=== PATIENT | male | born 1985 | race Caucasian/White ===

== ENCOUNTER 2018-03-09 06:12 | Day surgery (SDC) | payer OTHER ==
--- NOTE | 2018-03-08 18:33 | Pre-Procedure Note/Attestation ---
Pre-Procedure Note/Attestation Complete Prior to Procedure Planned Procedure: not applicable Procedure Narrative: 1. Spetoplasty 2. Submucous resection right inferior turbinate 3. Submucous resection left inferior turbinate 4. Repair nasal deformity Indications for Procedure Pre-Operative Diagnosis: 1. Nasal septal deviation 2. Hypertrophied right inferior turbinate 3. Hypertrophied left inferior turbinate 4. Nasal deformity Attestation I attest that I discussed the nature of the procedure; its benefits; risks and complications; and alternatives (and the risks and benefits of such alternatives ), prior to the procedure, with the patient (or the patient's legal medical representative). I attest that, if there was a reasonable possibility of needing a blood transfusion, the patient (or the patient's legal medical representative) was given the [facility] standardized written summary, pursuant to the Phong Kailash Blood Safety Act ([place] Health and Safety Code # 1645, as amended). I attest that I re-evaluated the patient just prior to the surgery and that there has been no change in the patient's H&P, : YOHAN LASSITER March 08, 2018 18:33
--- NOTE | 2018-03-08 18:34 | Brief Operative Note ---
Immediate Post Operative Note Operative Note Chief Complaint: Nasal airway obsrtuction and nasal deformity Pre-op Diagnosis: 1. Nasal septal deviation 2. Hypertrophied right inferior turbinate 3. Hypertrophied left inferior turbinate 4. Nasal deformity Procedure: 1. Spetoplasty 2. Submucous resection right inferior turbinate 3. Submucous resection left inferior turbinate 4. Repair nasal deformity Post-op Diagnosis: same as pre-op Surgeon: Yohan Lassiter Liner Checker: none Additional Surgeons: none Anesthesiologist: Andrea Anesthesia: general Specimen: yes - Gross septum-I am told pt will not be charged Complications: none Condition: stable Fluids: D5LR Estimated Blood Loss: volume - 100cc Drains: none Packing: Stamberger nasal gel Implant(s) used?: No YOHAN LASSITER March 08, 2018 18:34
--- NOTE | 2018-03-08 18:39 | Discharge Instructions ---
Discharge Instructions Discharge Instructions Follow up with: 03/18/18 noon Diet: regular Resume Normal Activity?: No Activity: light activity Pneumonia Vaccine: pt refused vaccine Influenza Vaccine (Jul to Dec): pt refused vaccine Follow Up Orders Pt has printed instructions which were reviewed and given to him on 03/02/18 during his pre op visit along with Rx for [place] and Amoxicillin to use post op. Return to Work/School on: March 22, 2018 For Congestive Heart Failure Reminder Report to your physician any weight gain of 5 pounds or more in one week. YOHAN LASSITER March 08, 2018 18:39
--- NOTE | 2018-03-08 23:15 | Pre-op HX & Phy Repo 2 SIG ---
DATE OF ADMISSION: 03/09/2018 DATE OF SURGERY: 03/09/2018 SURGEON: Janusz Gayle M.D. HISTORY OF PRESENT ILLNESS: The patient is a 33-year-old male, who has a nasal airway obstruction secondary to septal deviation and hypertrophied right and left inferior turbinates and nasal deformity. He is scheduled for surgery tomorrow septoplasty, submucous resection of right and left inferior turbinates, and repair of nasal deformity. PAST SURGICAL HISTORY: Appendectomy, umbilical hernia, and oral surgery. ALLERGIES: Unremarkable for drug allergies. SOCIAL HISTORY: He has never been a smoker. He is single. No children. He denies alcohol and drugs. He is employed in retail. He does exercise and uses probiotics and eats all foods. FAMILY HISTORY: Cancer. PHYSICAL EXAMINATION: GENERAL: He is 70 inches, 160 pounds, and BMI 22.96. VITAL SIGNS: Blood pressure 120/80, temperature 98.6, pulse 73, and respiratory rate 14 as of 03/02/2018 when I last saw him. HEENT: Head is normocephalic. Eyes, PERRLA, EOMI. Lips, tongue, pharynx, and neck normal. Nose, hypertrophied right and left inferior turbinates. Septal deviation. Nasal deformity. HEART: Normal S1 and S2. No murmur, bruit, gallop, or rub. ABDOMEN: Soft and nontender. Normoactive bowel sounds. EXTREMITIES: Grossly normal . GENITOURINARY: Not done as it is not indicated for the surgery and is followed by his regular doctor. NEUROLOGIC: Cranial nerves II through XII grossly normal. ASSESSMENT: He is stable for surgery as described above. PLAN: He has been given postop medications, amoxicillin and Cameron as well as printed instructions on 03/02/2018 that were reviewed with me. We discussed preop and postop care and he is stable for surgery. Janusz Gayle M.D. DR: ALENA JOB#: [id number] CC:
[2018-03-09] VITALS (15 sets, daily range): BP systolic 122–143; BP diastolic 65–88
[~2018-03-09] VITALS: Ht 177.8 cm; Wt 72.6 kg
[~2018-03-09 06:12] MED LIST: NKM
[2018-03-09] MEDS ORDERED: Lidocaine 1% 10mg/ml/EPI 0.01mg/ml 50ml INJ ONE (07:05)
[2018-03-09] MEDS ORDERED: Cocaine HCl 4% 4ml vial TOPIC ONE (07:05)
[2018-03-09] MEDS ORDERED: Bupivacaine 0.5% Inj 30 ml vial INJ ONE (07:06)
[2018-03-09] MEDS ORDERED: ceFAZolin sod 1 GM in D5W 55 ML IV SCH (07:15)
[2018-03-09] MEDS ORDERED: Sterile Water Irrig 1000ml IRRIG ONE (07:30)
[2018-03-09] MEDS ORDERED: Dexamethasone 4mg/ml vial IVP SCH (07:30)
[2018-03-09] MEDS ORDERED: LR 1000ml ONE (07:30)
[2018-03-09] MEDS ORDERED: NS Irrig 1000ml ONE (07:30)
[2018-03-09] MEDS ORDERED: Midazolam 2mg/2ml Inj ONE (07:34)
[2018-03-09] MEDS ORDERED: fentaNYL 100 mcg/2 mL IV ONE (07:34)
[2018-03-09] MEDS ORDERED: Propofol 200mg/20ml IV ONE (07:36)
[2018-03-09] MEDS ORDERED: Lidocaine 1% Plain 30 ml INJ ONE (07:36)
[2018-03-09] MEDS ORDERED: LR 1000ml 1,000 ML IVLG SCH (07:58)
[2018-03-09] MEDS ORDERED: Meperidine 50mg/ml Inj(FOR RIGORS ONLY) IVP PRN (08:00)
[2018-03-09] MEDS ORDERED: DiphenhydrAMINE 50mg/ml Inj IVP PRN (08:00)
[2018-03-09] MEDS ORDERED: Midazolam 2mg/2ml Inj IVP PRN (08:00)
--- NOTE | 2018-03-09 08:05 | Anethesia Preoperative Eval ---
Anesthesia Pre-op PMH/ROS General Date of Evaluation: March 09, 2018 Time of Evaluation: 07:20 Anesthesiologist: Andrea ASA Score: ASA 1 Mallampati Score Class I : Soft palate, uvula, fauces, pillars visible Class II: Soft palate, uvula, fauces visible Class III: Soft palate, base of uvula visible Class IV: Only hard plate visible Mallampati Classification: Class II Surgeon: Nalini Diagnosis: Nasal fracture, hypertrophic turbinates, septal deviation Surgical Procedure: ORIF nasal fracture, turbinectomies, septoplasty, SMR Family History: no anesthesia problems Allergies: Coded Allergies: Dairy (Verified Allergy, Intermediate, 03/09/18) lactoce intolerance, bloating Past Medical History Cardiovascular: Denies: HTN, CAD, HI, valve dz, arrhythmia, other Pulmonary: Denies: asthma, COPD, DANNY, other Gastrointestinal/Genitourinary: Denies: GERD, CRI, ESRD, other Neurologic/Psychiatric: Denies: dementia, CVA, depression/anxiety, TIA, other Endocrine: Denies: DM, hypothyroidism, steroids, other HEENT: Denies: cataract (L), cataract (R), glaucoma, GAMBELL (L), GAMBELL (R), other Hematology/Immune: Denies: anemia, DVT, bleeding disorder, other Musculoskeletal/Integumentary: Denies: OA, RA, DJD, DDD, edema, other PMH Narrative: Denies significant PMH PSxH Narrative: AP, IH Anesthesia Pre-op Phys. Exam Physician Exam Last Vital Signs Date Time Temp Pulse Resp B/P (MAP) Pulse Ox O2 Delivery O2 Flow Rate FiO2 03/09/18 06:53 97.9 90 20 127/69 99 Room Air 97.9 Constitutional: NAD Neurologic: CN 2-12 intact Cardiovascular: RRR, no M/R/G Respiratory: CTA Gastrointestinal: S/NT/ND Airway Exam Mallampati Score: Class II MO: full ROM: full Teeth: intact, other - S/p buccal fat removal yesterday. Bilateral swellilng present...cauterized hemostasis...no sutures. Anesthesia Pre-op A/P Labs WNL Risk Assessment & Plan Assessment: Healthy male for nasal surgery Plan: GA, LMA Status Change Before Surgery: No Pre-Antibiotics Drug: Ancef Given Within 1 Hr of Incision: Yes Time Given: :35 Phong Mendez MD March 09, 2018 08:05
--- NOTE | 2018-03-09 08:06 | Immediate Post-Op Evaluation ---
Immediate Post-Op Evalulation Immediate Post-Op Evalulation Procedure: ORIF nasal fracture, SMR, turbinectomies, septoplasty Date of Evaluation: March 09, 2018 Time of Evaluation: 08:55 IV Fluids: 675 Estimated Blood Loss: 50 Blood Pressure Systolic: 131 Blood Pressure Diastolic: 78 Pulse Rate: 109 Respiratory Rate: 17 O2 Sat by Pulse Oximetry: 97 Temperature (Fahrenheit): 98.0 Pain Score (1-10): 0 Nausea: No Vomiting: No Complications No complication Patient Status: reacts, patent, none Hydration Status: adequate Drug: Ancef Given Within 1 Hr of Incision: Yes Time Given: 07:35 Phong Mendez MD March 09, 2018 08:06
--- NOTE | 2018-03-09 08:54 | 48 Hour Post Anesthesia Eval ---
Post Anesthesia Evaluation Procedure: ORIF nasal fracture, SMR, turbinectomies, septoplasty Date of Evaluation: March 09, 2018 Time of Evaluation: 09:30 Blood Pressure Systolic: 128 0: 70 Pulse Rate: 104 Respiratory Rate: 17 O2 Sat by Pulse Oximetry: 97 Airway: patent Nausea: No Vomiting: No Pain Intensity: 2 Hydration Status: adequate Cardiopulmonary Status: Stable Mental Status/LOC: patient returned to baseline Follow-up Care/Observations: As per surgery Post-Anesthesia Complications: No anesthetic complication. Patient had an episode of SVT (rate of 150) in PACU. Treated with Metoprolol. Now rate is 100. VSS. Follow-up care needed: N/A Phong Mendez MD March 09, 2018 08:54
[2018-03-09] MEDS ORDERED: Metoprolol 5mg/5ml Inj ONE (08:57)
[2018-03-09] MEDS ORDERED: Metoprolol 5mg/5ml Inj IVP STA (08:57)
[2018-03-09] MEDS ORDERED: Norco 5mg/325mg tab ORAL PRN (09:00)
[2018-03-09] MEDS ORDERED: Metoclopramide 10mg/2ml Inj IVP PRN (09:00)
[2018-03-09] MEDS ORDERED: Metoprolol 5mg/5ml Inj IVP PRN (11:00)
--- NOTE | 2018-03-09 16:00 | Operative Note - Dictated ---
DATE OF OPERATION: 03/09/2018 SURGEON: Janusz Gayle M.D. CARDIAC EXERCISE PHYSIOLOGIST: None. ANESTHESIOLOGIST: Phong Mendez M.D. ANESTHESIA: LMA general anesthesia as well as 13 mL 50:50 mixture 1% lidocaine with 1:100,000 epinephrine and Marcaine 0.5% without epinephrine. INDICATION FOR SURGERY: The patient with nasal airway obstruction secondary to septal deviation and hypertrophied right and left inferior turbinates and nasal deformity. POSTOPERATIVE DIAGNOSIS: The patient with nasal airway obstruction secondary to septal deviation and hypertrophied right and left inferior turbinates and nasal deformity. FINDINGS: The patient with nasal airway obstruction secondary to septal deviation and hypertrophied right and left inferior turbinates and nasal deformity. PROCEDURE: 1. Septoplasty. 2. Submucous resection of right inferior turbinate. 3. Submucous resection of left inferior turbinate. 4. Repair of nasal deformity. TECHNIQUE: The patient was prepped and draped in the usual manner via LMA general anesthesia. A time-out was performed and all concurred as to the procedure and equipment. I then injected 13 mL of the above mixture lidocaine, Marcaine, epinephrine. I also placed 4 nasal pledgets, which had a total of 4 mL of 4% cocaine, 2 in either nostril which were accounted for at the end of the case. Initially incision was made in either inferior turbinate with a #15 blade. Radiofrequency was used after coating with saline gel count of 10 x 2 in either inferior turbinate and outfractured with a Boies elevator. I then proceeded to the septum. I made a Miguel incision in the right hand side. Elevated subperiosteally and subperichondrally on either side with a dental elevator. I then was able to use an osteotome to remove the vomer and part of the septum inferiorly and then angled scissors to remove the superior aspect leaving a centimeter anteriorly and a centimeter inferiorly. I then removed the piece with a straight Sondra. This was sewn together with a 4-0 plain suture. Incision was made between the cartilage and margin incisions with a #15 blade. Initially I delivered the lower lateral cartilages and left 3 to 4 millimeters inferiorly removing the superior aspect with #15 blade. I then proceeded to elevate over the anterior part of the nose with an angled scissors. I then use an Alfreck to lift the periosteum. I then used a straight osteotome to make a medial osteotomy in a curved guarded osteotome to make a lateral osteotomy. There was full fracture of the nasal bone. A rasp was then used this was off the top of the nose and the nasal bone was placed in its normal position. The tissue glue was placed over the nose, tape and stent including the tip. Stammberger nasal gel one syringe was placed in the nose, about 60% on the right and the remainder 40% on the left. The patient was extubated awake and alert, and stable in recovery room prior to transfer to recovery room. ESTIMATED BLOOD LOSS: Approximately 100 mL. COMPLICATIONS: None. DRAINS: None. Janusz Gayle M.D. DR: BRIA JOB#: [id number] CC: TOAV
== END 2018-03-09 12:00 | disposition home or self-care (01) ==
LOC: SUR 06:12
DX: J34.2 Deviated nasal septum (principal); J34.3 Hypertrophy of nasal turbinates; M95.0 Acquired deformity of nose; S02.2XXA Fracture of nasal bones, initial encounter for closed fracture; X58.XXXA Exposure to other specified factors, initial encounter; Y93.9 Activity, unspecified; Y92.9 Unspecified place or not applicable; Z90.89 Acquired absence of other organs; Z80.9 Family history of malignant neoplasm, unspecified
CPT/HCPCS: 21330; 30140; 30520; J0690; J2001; J2250; J2405; J2704; J3010; J3490; J7120